=== PATIENT | female | born 1965 | race Asian ===

== ENCOUNTER 2017-01-21 21:06 | Emergency (ER) | payer MEDICAID, OTHER ==
[~2017-01-21] VITALS: Ht 152.4 cm; Wt 63.5 kg
[2017-01-21] MEDS ORDERED: ASPI-1093 PO (21:19)
[2017-01-21] MEDS ORDERED: LISI-661 PO (21:19)
[2017-01-21] MEDS ORDERED: DiphenhydrAMINE HCL 25 MG CAPSULE PO ONE (21:45)
[2017-01-21] MEDS ORDERED: PredniSONE 20 MG TABLET PO ONE (21:45)
[2017-01-21 22:32] VITALS: BP 124/91
== END 2017-01-21 23:02 | disposition home or self-care (01) ==
LOC: EMS 21:08
DX: T78.40XA Allergy, unspecified, initial encounter (principal); I10 Essential (primary) hypertension; Z79.82 Long term (current) use of aspirin
CPT/HCPCS: 99283; J7512

== ENCOUNTER 2022-02-07 18:47 | Emergency (ER) | payer OTHER ==
[~2022-02-07] VITALS: Ht 152.4 cm; Wt 66.4 kg
[~2022-02-07 18:47] MED LIST: ASPI-1444 PO; LISI-893 PO
[2022-02-07] MEDS ORDERED: LISI20TA24 PO (19:02)
[2022-02-07] MEDS ORDERED: ATOR20TA65 PO (19:02)
[2022-02-07 20:53] VITALS: BP 152/79
[2022-02-07] MEDS ORDERED: HYDR-4527 PO (21:10)
[2022-02-07] MEDS ORDERED: METH4TAB3 PO (21:10)
[2022-02-07] MEDS ORDERED: MethylPREDNISolone SOD SUCC 125 MG/2 ML VIAL IM ONE (21:15)
[2022-02-07] MEDS ORDERED: MethylPREDNISolone SOD SUCC 125 MG/2 ML VIAL IVP ONE (21:15)
[2022-02-07] MEDS ORDERED: DiphenhydrAMINE HCL 25 MG CAPSULE PO ONE (21:15)
== END 2022-02-07 21:26 | disposition home or self-care (01) ==
LOC: EMS 18:52
DX: L50.9 Urticaria, unspecified (principal); I10 Essential (primary) hypertension
CPT/HCPCS: 99283; 96372; J2930